=== PATIENT | female | born 1995 | race Caucasian/White ===

== ENCOUNTER 2016-05-22 01:21 | Emergency (ER) | payer OTHER ==
[2016-05-22 01:27] VITALS: BP 118/85
[2016-05-22] MEDS ORDERED: Ibuprofen TAB* 400 MG PO ONE (01:32)
--- NOTE | 2016-05-22 01:38 | ED ---
Laceration/Wound HPI - HPI Summary HPI Summary: [place] and a piece of glass cut the side of her foot. Her tetanus is up to date. She has not taken any medication for pain. She has not washed the area. No N/T. She is able to bear weight. - History of Current Complaint Stated Complaint: LT FOOT LAC Time Seen by Provider: 05/22/16 01:26 Hx Obtained From: Patient Mechanism of Injury: Sharp/Blunt Trauma Onset/Duration: Sudden Onset Aggravating: Nothing Alleviating: Nothing Timing: Constant Onset Severity: Mild Current Severity: Mild Pain Intensity: 3 Associated Signs & Symptoms: Pain PMH/Surg Hx/FS Hx/Imm Hx Previously Healthy: Yes Infectious Disease History: No Infectious Disease History: Denies: Traveled Outside the [place] in Last 30 Days - Family History Known Family History: Positive: None - Social History Occupation: Student Lives: With Family Alcohol Use: Occasionally Substance Use Type: Reports: None Smoking Status (MU): Never Smoked Tobacco Review of Systems Positive: Other - 1 inch laceration to foot All Other Systems Reviewed And Are Negative: Yes Physical Exam Triage Information Reviewed: Yes Vital Signs On Initial Exam: Initial Vitals Temp Pulse Resp BP Pulse Ox 98.7 F 83 20 118/85 98 05/22/16 01:26 05/22/16 01:26 05/22/16 01:26 05/22/16 01:26 05/22/16 01:26 Vital Signs Reviewed: Yes Appearance: Positive: Well-Appearing, No Pain Distress, Obese Skin: Positive: Warm, Skin Color Reflects Adequate Perfusion, Dry, Tender - 1 inch laceration on medial left foot arch, Soft Head/Face: Positive: Normal Head/Face Inspection Eyes: Positive: EOMI, RIMA, Conjunctiva Clear ENT: Positive: Hearing grossly normal Respiratory/Lung Sounds: Positive: Breath Sounds Present Cardiovascular: Positive: RRR Musculoskeletal: Positive: Strength/ROM Intact Neurological: Positive: Sensory/Motor Intact, Alert, Oriented to Person Place, Time, NV Bundle Intact Distally Psychiatric: Positive: Affect/Mood Appropriate AVPU Assessment: Alert Procedures - Laceration/Wound Repair 1 Location: lower extremity - right foot arch Description: Linear Anesthesia: Local, 2.0%, Lido Length, Depth and Shape: 1 inch long, 3mm wide, 2 mm deep Betadine Prep?: No Irrigated w/ Saline (ccs): 200 Laceration/Wound Explored: clean Closure: Single Layer Debridement: minimal Suture Type: Nylon - 4.0 Number of Sutures: 6 Layer Closure?: No Sterile Dressing Applied?: Yes Diagnostics - Vital Signs Vital Signs Temp Pulse Resp BP Pulse Ox 05/22/16 01:26 98.7 F 83 20 118/85 98 - Laboratory Lab Statement: Any lab studies that have been ordered have been reviewed, and results considered in the medical decision making process. Laceration Repair Course/Dx - Differential Dx Differental Diagnoses: Abrasion, Avulsion, Dehiscence, Hematoma, Laceration, Puncture Wound - Clinical Impression Provider Diagnoses: Laceration of left foot Discharge - Discharge Plan Condition: Stable Disposition: HOME Patient Education Materials: Laceration (ED) Referrals: [facility] @ [Outside] Additional Instructions: Keep your dressing clean, dry and in place for the next 24 hours. You may then remove and shower. Pat dry and cover with a clean, dry band-aid if you are going to be in a "dirty" environment, otherwise it can remain open to air. Do not soak the wound in any body of water until the sutures are removed. Elevate the foot above your heart and use Ibuprofen 600mg three times daily with meals for the next 5-7 days to reduce pain and swelling. Follow-up with [facility] or return to the emergency department in 10-12 days for suture removal. Return to the emergency department sooner if your symptoms worsen.
== END 2016-05-22 02:05 | disposition home or self-care (01) ==
LOC: ED 01:21
DX: S91.312A Laceration without foreign body, left foot, initial encounter (principal); W25.XXXA Contact with sharp glass, initial encounter; Y93.9 Activity, unspecified; Y92.9 Unspecified place or not applicable; Y99.9 Unspecified external cause status
CPT/HCPCS: 12001; 99282; A9270-GY